=== PATIENT | male | born 1945 | race Caucasian/White ===

== ENCOUNTER → 2018-07-28 | Outpatient (CLI) | payer MEDICARE, OTHER ==
[2015-11-25 15:16] VITALS: BMI 26.8
[~2018-07-28] MED LIST: AMOX-559 PO; ASPI-757 PO; ASPI81TA94 PO; CIPR-214 PO; CIPR-344 PO; DOCU-416 PO; FAMO20TA28 PO; GADOBENATE 529MG/1ML 15ML VIAL IVP ONE; HYDR-389 PO; HYDR-6016 PO; IBUP600T22 PO; IBUP800T37 PO; INSU100I24 SQ; IOPAMIDOL 76% 50 ML INFUS BTL 100 ML ONE; LEVO-85 PO; NS(*) 0.9% 50 ML BAG 50 ML ONE; [UNRECOGNIZED DRUG - OTHER] PO
--- NOTE | 2018-07-28 13:11 | RADIOLOGY IMAGING REPORT ---
FACILITY: [facility] - [place] PATIENT NAME: Shekhar Del Rosario : 1945 MR: [id number] V: [id number] EXAM DATE: ORDERING PHYSICIAN: DENA ELENA TECHNOLOGIST: Location: [facility] [place] Patient: Shekhar Del Rosario : 1945 Visit/Account:[id number] Date of Sevice: 07/28/2018 EXAMINATION: CT abdomen without IV contrast CT abdomen with IV contrast CT pelvis without IV contrast CT pelvis with IV contrast HISTORY: Adenocarcinoma of the prostate. COMPARISON: CT abdomen and pelvis from 10/14/2015 and bone scan from 07/28/2018. TECHNIQUE: Axial images were taken through the abdomen and pelvis without and with intravenous contr ast. Sagittal and coronal reformatted images are also submitted. CONTRAST: 75 mL of IV Isovue-370. One of the following dose optimization techniques was utilized in the performance of this exam: Autom ated exposure control; adjustment of the mA and/or kV according to the patient's size; or use of an i terative reconstruction technique. Specific details can be referenced in the facility's radiology C T exam operational policy. FINDINGS: Liver/biliary: Negative. Pancreas: Negative. Spleen: Negative. Adrenal glands: Negative. Kidneys: Negative. Pelvic structures: Prostatectomy. Mild concentric urinary bladder wall thickening without focal a bnormality. Bowel: Moderate diverticulosis of the colon, worst in the sigmoid colon. No adjacent inflammation. Bowel loops are normal in caliber. There is normal caliber, thin-walled retrocecal appendix. Peritoneum/retroperitoneum/mesenteries: Negative. Vessels: Moderate atherosclerotic calcifications. Vascular structures are patent. Musculoskeletal/body wall: Mild sclerosis paralleling the L1 inferior endplate is new. Chronic bilat eral L5 pars defects with grade 1 spondylolisthesis at L5-S1 measuring 5 mm is unchanged. Patchy deg enerative changes of the spine. Lymph nodes: Previous bilateral iliac node resection. No enlarged or abnormal morphology lymph nodes . Lower chest: Calcification of the mitral annulus. Small amount of fluid in the distal esophagus. IMPRESSION: 1. Sclerosis paralleling the L1 inferior endplate is new and probably represents a benign osteoporot ic inferior endplate fracture. 2. No definite evidence of metastatic disease. 3. Diverticulosis of the colon without acute diverticulitis. Report Dictated By: Madeline Greenwood MD at 07/28/2018 12:59 PM Report E-Signed By: Madeline Greenwood MD at 07/28/2018 1:07 PM WSN:[email or web address]
--- NOTE | 2018-07-28 13:12 | RADIOLOGY IMAGING REPORT ---
FACILITY: [facility] - [place] PATIENT NAME: Shekhar Del Rosario : 1945 MR: [id number] V: [id number] EXAM DATE: ORDERING PHYSICIAN: DENA ELENA TECHNOLOGIST: Location: [facility] - [place] Patient: Shekhar Del Rosario : 1945 Visit/Account:[id number] Date of Sevice: 07/28/2018 EXAMINATION: Nuclear medicine whole body bone scan HISTORY: Adenocarcinoma of the prostate. COMPARISON: Bone scan from 10/14/[address] abdomen and pelvis from 07/28/2018. TECHNIQUE: 24.4 mCi Technetium-99m HDP was injected intravenously. Delayed anterior and posterior wh ole body gamma camera images were obtained. Additional gamma camera images: Skull. FINDINGS: Bone radiotracer activity: There is increased uptake in the maxilla and mandible bilaterally, new fr om previous exam. There is vague horizontally oriented uptake in the L1 vertebra. Mild uptake in the lower cervical spine, bilateral AC joints, sternoclavicular joints, both knees, ri ght foot and the left 2nd toe. Extraosseous radiotracer activity: Normal. Renal and urinary collecting system activity: Normal. IMPRESSION: 1. Horizontally oriented uptake in the L1 vertebra is new, and corresponds to a subacute appearing i nferior endplate fracture on CT. This is unlikely to be a bone metastasis, but MRI of the lumbar spi ne without and with IV contrast can be done for further evaluation if needed. 2. Abnormal uptake in the bilateral maxilla and mandible is new and could be due to recent dental wo rk, or osteoradionecrosis. This is unlikely to represent metastatic disease. 3. Other patchy areas of uptake described above are likely degenerative. Report Dictated By: Madeline Greenwood MD at 07/28/2018 12:17 PM Report E-Signed By: Madeline Greenwood MD at 07/28/2018 1:08 PM RAQUELN:[email or web address]
--- NOTE | 2018-07-28 17:58 | RADIOLOGY IMAGING REPORT ---
FACILITY: [facility] - [place] PATIENT NAME: Shekhar Del Rosario : 1945 MR: [id number] V: [id number] EXAM DATE: ORDERING PHYSICIAN: DENA ELENA TECHNOLOGIST: Location: [facility] Patient: Shekhar Del Rosario : 1945 Visit/Account:[id number] Date of Sevice: 07/28/2018 EXAMINATION: L SPINE W W/O CONTRAST INDICATION: Prostate cancer COMPARISON: Bone scan same day, CT same day TECHNIQUE: Multiplane MR imaging was performed through the lumbar spine without and with contrast. 1 5 ml multihance injected. FINDINGS: Vertebral bodies and posterior elements: Normal vertebral body heights. Chronic bilateral L5 pars de fects. Conus position/signal: Normal Marrow signal: Mild degenerative marrow edema surrounds the L1-2 disc space. A linear band of enhanc ing marrow edema within the inferior right L1 vertebral body is positioned just above the endplate an d correlates with a thin linear patch of sclerosis on the comparison CT. Small enhancing Schmorl's node within the upper L3 endplate noted. Additional small enhancing Schmor l's node within the inferior L1 endplate. Minimal degenerative edema surrounds the T12-L1 and L2-3 disc spaces. Extraspinal structures including psoas muscles/paraspinal soft tissues: Normal L1-2: Slight retrolisthesis of L1 on L2. Moderate disc space degeneration. Minimal disc protrusion, mild right lateral recess narrowing, mild bilateral foraminal narrowing. L2-3: Mild disc space degeneration, slight retrolisthesis of L2 on L3, small disc protrusion, mild bi lateral lateral recess narrowing, moderate left and mild right foraminal narrowing. L3-4: Moderate left and mild to moderate right foraminal narrowing, otherwise normal. L4-5: Mild to moderate left and moderate right foraminal narrowing, otherwise normal. L5-S1: Grade 1 anterolisthesis of L5 on S1. Minimal disc protrusion, no canal narrowing, severe bila teral foraminal narrowing. IMPRESSION: 1. Thin linear enhancing marrow edema within the inferior right L1 vertebral body correlates with th e finding of interest on comparison CT. This may represent the residua of a subacute vertebral body fracture. Notably there is no vertebral body height loss at this level. This linear marrow signal could alternatively be degenerative. 2. There is additional mild degenerative edema surrounding the L1-2 disc space which partially contr ibutes to the increased activity at the inferior L1 level on the comparison bone scan. 3. No metastatic disease identified. 4. Multilevel foraminal narrowing see level by level comments above. 5. Moderate L1-2 and mild L2-3 disc space degeneration. 6. Bilateral chronic L5 pars defects with grade 1 anterolisthesis of L5 on S1. Report Dictated By: Sebastian Restrepo MD at 07/28/2018 5:41 PM Report E-Signed By: Sebastian Restrepo MD at 07/28/2018 5:54 PM WSN:[id number]
== END ==
LOC: NUC 01:16
DX: C61 Malignant neoplasm of prostate (principal); G35 Multiple sclerosis; K57.53 Diverticulitis of both small and large intestine without perforation or abscess with bleeding
CPT/HCPCS: 36415; 72158; 74178; 78306; 82565; A9503; A9577; J7050; Q9967

== ENCOUNTER → 2019-01-04 | Outpatient (CLI) | payer MEDICARE, OTHER ==
[2015-11-25 15:16] VITALS: BMI 26.8
[~2019-01-04] MED LIST changes: -IOPAMIDOL 76% 50 ML INFUS BTL 100 ML ONE
--- NOTE | 2019-01-04 12:21 | RADIOLOGY IMAGING REPORT ---
FACILITY: [facility] [place] PATIENT NAME: Shekhar Del Rosario : 1945 MR: [id number] V: [id number] EXAM DATE: ORDERING PHYSICIAN: MADDY FIGUEREDO TECHNOLOGIST: Location: [facility] Patient: Shekhar Del Rosario : 1945 Visit/Account:[id number] Date of Sevice: 01/04/2019 EXAMINATION: CT pelvis without contrast for treatment planning 01/04/2019 10:00 AM HISTORY: Prostate cancer. Treatment field placement. TECHNIQUE: Helical unenhanced imaging of the pelvis was done for treatment planning. One of the following dose optimization techniques was utilized in the performance of this exam: Autom ated exposure control; adjustment of the mA and/or kV according to the patient's size; or use of an i terative reconstruction technique. Specific details can be referenced in the facility's radiology C T exam operational policy. COMPARISON: CT 07/28/2018. FINDINGS: There appears to been prostatectomy. No significant pelvic soft tissue mass or adenopathy evident. Diverticulosis of colon. Bilateral L5 pars defects. Infiltration in subcutaneous fat in the ventral right abdomen is likely related to injections. IMPRESSION: Pelvis CT for treatment planning. Report Dictated By: Erik Rob MD at 01/04/2019 12:13 PM Report E-Signed By: Erik Rob MD at 01/04/2019 12:17 PM WSN:[email or web address]
--- NOTE | 2019-01-04 15:08 | RADIOLOGY IMAGING REPORT ---
FACILITY: [facility] PATIENT NAME: Shekhar Del Rosario : 1945 MR: [id number] V: [id number] EXAM DATE: ORDERING PHYSICIAN: MADDY FIGUEREDO TECHNOLOGIST: Location: [facility] - [place] Patient: Shekhar Del Rosario : 1945 Visit/Account:[id number] Date of Sevice: 01/04/2019 MR PELVIS W & W/O CON HISTORY: History of prostate cancer with prostatectomy. Rising PSA. Evaluate prostate bed. TECHNIQUE: Multiplanar multisequence magnetic resonance imaging of the pelvis without and with intra venous contrast. CONTRAST: 14 mL MultiHance IV contrast. COMPARISON: CT dated July 28, 2018. FINDINGS: : Prostate is surgically absent. No definitive abnormal soft tissue within the resection bed to s uggest residual/recurrent disease. There is however an apparent small focus of potential restricted diffusion near the expected location of the left apical prostate measuring approximately 5 mm in diam eter (image 59 of series 7), with apparent associated enhancement (image 25 of series 11). This appe ars to demonstrate heterogeneous increased T2 signal (image 10 of series 5). This is abutting the po sterior aspect of the bladder and anterior aspect of the lower rectum. Mild benign-appearing bladder wall thickening. Visualized GI: Negative. Vessels/spaces/nodes: No visualized lymphadenopathy. Bones/soft tissues: Negative. IMPRESSION: 1. Prostate is surgically absent without definitive evidence for local residual/recurrent disease. There is however a focus of intermediate/high T2 signal, enhancement, and potential restricted diffus ion within the expected location of the left apical prostate which is nonspecific however could repre sent a small focus of residual/recurrent disease. Consider Axumin PET/CT for further evaluation if a dditional imaging is desired. 2. No evidence for sophia or osseous metastasis Report Dictated By: Sebastian Pompa MD at 01/04/2019 2:54 PM Report E-Signed By: Sebastian Pompa MD at 01/04/2019 3:04 PM WSN:[id number]
== END ==
LOC: MRI 08:28
PROVIDERS: ATTEND Radiology Radiation Oncology
DX: C61 Malignant neoplasm of prostate (principal)
CPT/HCPCS: 72197; A9577; J7050

== ENCOUNTER 2019-03-15 09:30 | Outpatient (RCR) | payer MEDICARE, OTHER ==
[2015-11-25 15:16] VITALS: BMI 26.8
[2018-12-29 08:39] VITALS: BP 143/78
--- NOTE | 2018-12-30 10:25 | ONCOLOGY CONSULTATION ---
EVENT DATE: December 29, 2018 REASON FOR CONSULTATION Hamilton 8 adenocarcinoma of the prostate with initial treatment with radical prostatectomy, rising PSA with referral for radiotherapy consideration by Dr. Rosario. ONCOLOGY HISTORY This is a 73-year old gentleman who is referred to me by Dr. Rosario for consultation today. The patient states that he had his first PSA through Dr. Harman's office back in 2015. The PSA was significantly elevated at 17 ng/mL. The patient then underwent prostate biopsy, which was positive. He was counseled regarding his options and elected to proceed with radical prostatectomy. The procedure was performed on November 24, 2015. This specimen demonstrates a Hamilton 4+4=8 poorly differentiated adenocarcinoma of the gland. Surgical margins were negative. However, specimen was positive for perineural invasion. No LDI. Seminal vesicles were negative for malignancy. Patient also had a biopsy of the left and right iliac lymph nodes and obturator lymph nodes, which were negative for malignancy bilaterally. Prostate itself was enlarged at 5.5 x 4.0 x 4.5 cm. Postoperatively, the patient did reasonably well. His initial PSA was 0 in late September 2017. PSA evi to 0.1 ng/mL in February 2018. By May 2018, PSA was 0.2. The PSA evi to 0.3 ng/mL in July 2018. The most recent PSA was 0.5 ng/mL, which was drawn on November 22, 2018. Patient informs me he has had one additional PSA this month, which is also 0.5 ng/mL. During the month of July, the patient underwent full radiographic workup by Dr. Rosario including a CT scan of the abdomen and pelvis, which was negative for metastatic disease. That study was reviewed in the office with the patient. He also had an MRI scan of the lumbar spine as well as a bone scan. No evidence of distant metastatic disease was appreciated. Patient states that he presently is not experiencing any persistent bone pain. No recent weight loss. He does have some longstanding pain in his right ankle for 30 years. In terms of his voiding function, he generally uses larger pads during the day and one smaller pad at night. He does have stress incontinence, most notable when he is working with heavy objects outside. No dysuria. No history of any stricture. PAST MEDICAL HISTORY 1. Brenna 8 adenocarcinoma of the prostate with history listed above. 2. Type 2 diabetes. PAST SURGICAL HISTORY Radical prostatectomy, November 24, 2015. FAMILY HISTORY Patient's father at age 78 with prostate carcinoma. Mother at age 87 with heart disease. He has one brother who is alive and well at age 78, presently living in [place] and moving to [place]. SOCIAL HISTORY Patient smoked briefly when he was in his 30s, perhaps for ten years. Does not drink alcohol. He is . He has one son with schizophrenia who lives at home. 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 He is still active in that business in [facility]. He lives in [facility] at this time on a [address] property. REVIEW OF SYSTEMS Notable for the right ankle pain periodically. Voiding dysfunction as listed above. Otherwise unremarkable. Patient did a history of BPH prior to his surgery. According to the outside records, the patient also had repair of a rectal injury by Dr. Sotelo in 2015. CURRENT MEDICATIONS 1. Humalog insulin. 2. Aspirin 81 mg every day. PHYSICAL EXAMINATION GENERAL: Pleasant 73-year old male, medium build. BP 143/87, weight 160, height 5 feet 8 inches, respirations 14, pulse 57, O2 saturation 95% on room air. HEENT: Unremarkable. LUNGS: Clear to auscultation bilaterally. HEART: Regular with notable murmur. ABDOMEN: Soft. No gross organomegaly, mass or tenderness. RECTAL: Prostate bed is essentially flat. There is a slight elevation on the left side with firmness, which may be postsurgical change. I will try to correlate with CT findings. No tenderness noted. EXTREMITIES: No edema or cyanosis. NEUROLOGIC: Intact. IMPRESSION AND PLAN This is a 73-year old gentleman who was diagnosed with a fairly aggressive prostate carcinoma three years ago. He was found to have initially high PSA of 17 ng/mL. He underwent a radical prostatectomy in November 2015, and initially his PSA did fall to 0, which was the goal. Unfortunately, the PSA has recently risen to 0.5 ng/mL and appears to have a doubling time of approximately four months in my estimation. One adverse feature the patient did have was perineural invasion on his initial specimen, which does have a significantly higher recurrence of risks, particularly accompanied by poorly-differentiated tumor. Mr. Del Rosario and I discussed the present NCCN Guidelines in terms of workup and therapy. I think it would be difficult to find the active tumor cells with the presently available isotope studies (Choline-11). Those studies are more useful when the PSA is slightly higher. That said, I think we should proceed with an MRI scan of the pelvis to determine if we have any enhancement of the soft tissues in the periprostatic region due to its higher sensitivity. I will proceed with targeting CT scan on the same day. Given the features of a Brenna 8 tumor as well as a rising PSA, there is a fairly high risk of tumor recurrence and dissemination based on available literature review today. I would like the patient to initiate antigen deprivation therapy in the form of Lupron to be used in combination with the external beam radiation therapy. The latter would be continued for a time period of 6 to 24 months depending on the patient's tolerance. I contacted Dr. Rosario's office and left a message with his staff explaining the request and the patient will initiate that later today or within the week. The radiation therapy course will start the second week of January as the patient has an obligation the first week of January to travel. The relative incidence of bowel or urinary symptoms during treatment course with radiation [place] that are utilized for post prostatectomy patients is quite low. From randomized trials. The incidence of significant urinary or bowel symptoms is well under 10% during and after the radiation program. Signed consent was obtained from the patient after reviewing potentially acute side effects and therapeutic alternatives. All questions were answered to his satisfaction today and I will be happy to go over the treatment plan again with him when he returns to start the treatment program. He will be speaking with the physician in [place] over the next week to review the treatment plan and I would be happy to talk with any providers regarding questions regarding his cancer or the intended treatment plan. All questions were answered to the patient's satisfaction over a 90-minute consultation this morning. Thank you for the referral and excellent records which accompanied the patient today for review. Literature from [facility] generally reveals long-term PSA progression free survival in the 60% to 80% range at five years. Additional therapeutic options are available to the patient at a later date if there are any signs or metastatic disease. In general, the majority of recurrences are local and the radiotherapy is optimally effective when the PSA is under 2 when treatment is initiated. That appears to be the case for this gentleman and I think with combination Lupron we should be able to bring the PSA back down to 0 within the next two to four months. MTDD
[2019-01-04 08:12] VITALS: BP 169/64
[~2019-03-15 09:30] MED LIST changes: +BICA50TA41 PO; -GADOBENATE 529MG/1ML 15ML VIAL IVP ONE; -NS(*) 0.9% 50 ML BAG 50 ML ONE
== END 2019-03-25 ==
LOC: RAON 09:30
PROVIDERS: ATTEND Radiology Radiation Oncology
DX: Z51.0 Encounter for antineoplastic radiation therapy (principal); C61 Malignant neoplasm of prostate
CPT/HCPCS: 36415; 77300; 77301; 77336; 77338; 77385; 82565; G0463; 72197; 99202; A9577; J7050